=== PATIENT | male | born 1960 | race Caucasian/White ===

== ENCOUNTER 2017-11-10 13:12 | Emergency (ER) | payer SELFPAY ==
[2017-11-10 13:42] VITALS: BP 135/69
--- NOTE | 2017-11-10 14:27 | UC ---
Skin Complaint HPI - HPI Summary HPI Summary: 57 y/o WM presents with a pruritic rash to his wrists. He tells me that about 1 week ago he was cleaning out a basement and later that night noticed some itching to his wrist. The next day had a slight red rash. He was wearing gloves while cleaning. He has not tried anything for this rash. The rash is still itchy , but has not spread. He denies pain, fever, chills, recent illness, drainage, bleeding, or injury to the areas. - History of Current Complaint Chief Complaint: UCSkin Time Seen by Provider: 11/10/17 14:23 Stated Complaint: RASH ON WRISTS Hx Obtained From: Patient Onset/Duration: Sudden Onset Skin Exposure Onset/Duration: Days Ago Timing: Constant Onset Severity: Mild Current Severity: Mild - Allergy/Home Medications Allergies/Adverse Reactions: Allergies Allergy/AdvReac Type Severity Reaction Status Date / Time No Known Allergies Allergy Verified 11/10/17 13:32 Home Medications: Home Medications Atorvastatin* [Lipitor 10 MG*] 10 mg PO DAILY 11/10/17 [History Confirmed ] Blood Thinner 11/10/17 [History] Bp Med 11/10/17 [History] Review of Systems Constitutional: Negative Skin: Rash - b/l wrists Respiratory: Negative Cardiovascular: Negative Neurovascular: Negative All Other Systems Reviewed And Are Negative: Yes PMH/Surg Hx/FS Hx/Imm Hx Endocrine History: Dyslipidemia Cardiovascular History: Cardiac Disease, Hypertension - Surgical History Surgical History: Yes Surgery Procedure, Year, and Place: 4 cardiac stents placed 06/2017 - Social History Alcohol Use: Rare Alcohol Amount: beer Substance Use Type: None Smoking Status (MU): Former Smoker Physical Exam Triage Information Reviewed: Yes Appearance: Well-Appearing, Well-Nourished Vital Signs: Initial Vital Signs Temp 99.2 F 11/10/17 13:35 Pulse 68 11/10/17 13:35 Resp 16 11/10/17 13:35 BP 135/69 11/10/17 13:35 Pulse Ox 97 11/10/17 13:35 Vital Signs Reviewed: Yes Neck: Positive: Supple, No Lymphadenopathy Respiratory: Positive: Chest non-tender, Lungs clear, Normal breath sounds Cardiovascular: Positive: RRR, No Murmur, Pulses Normal Neurological: Positive: Alert Psychological: Positive: Age Appropriate Behavior Skin: Positive: rashes - B/L wrists. Both wrists have an alomst identical and symmetric rash. On the dorsal surface, beginning at the base of the hand, there is an mild area of erythema and excoriations that extend ~4cm up to his distal forearm. No rash on the ventral sides. No drainage, bleeding, edema, ecchymosis , plaques, or open areas. Course/Dx - Course Course Of Treatment: Suspect contact dermatitis. Rx for hydrocortisone BID for 1 week - Differential Diagnoses - Skin Complaint Differential Diagnoses: Contact Dermatitis, Eczema, Scabies - Diagnoses Provider Diagnoses: Contact Dermatitis Discharge - Discharge Plan Condition: Stable Disposition: HOME Prescriptions: Hydrocortisone Acetate (Topica [Hydrocortisone Acetate] 1 % TOPICAL BID PRN #1 tube PRN Reason: Rash Patient Education Materials: Contact Dermatitis (ED) Referrals: Raul METCALF,José Umana [Primary Care Provider] - Additional Instructions: If you develop a fever, shortness of breath, chest pain, new or worsening symptoms - please call your PCP or go to the ED.
== END 2017-11-10 14:40 | disposition home or self-care (01) ==
LOC: UCEAST 13:12
DX: L25.9 Unspecified contact dermatitis, unspecified cause (principal); B86 Scabies; I10 Essential (primary) hypertension; E78.5 Hyperlipidemia, unspecified; Z87.891 Personal history of nicotine dependence
CPT/HCPCS: 99202; G0463